=== PATIENT | male | born 1960 | race African-American/Black ===

== ENCOUNTER 2018-01-02 17:25 | Emergency (ER) | payer OTHER ==
[2018-01-02 18:24] LABS: ADD MAN DIFF? YES; BASO % 0 % (0-3); EOS % 0 % (0-3); HEMATOCRIT 37.6 % (39.0-53.0); HEMOGLOBIN 12.4 g/dL (13.0-17.5); LYMPH # 1.1 x10^3/uL (1.0-4.8); LYMPH % 18 % (24-48); MEAN CORPUSCULAR HEMOGLOBIN 30 pg (25-35); MEAN CORPUSCULAR HGB CONC 33 g/dL (31-37); MEAN CORPUSCULAR VOLUME 92 fL (79-100); MONO # 1.3 x10^3/uL (0.0-1.1); MONO % 20 % (0-9); NEUT # 3.8 x10^3uL (1.8-7.7); NEUT % 62 % (31-73); PLATELET COUNT 141 x10^3/uL (140-400); RED BLOOD COUNT 4.12 x10^6/uL (4.30-5.70); RED CELL DISTRIBUTION WIDTH 17.8 % (11.5-14.5); WHITE BLOOD COUNT 6.1 x10^3/uL (4.0-11.0)
[2018-01-02 18:34] LABS: ANION GAP 13 (6-14); BLOOD UREA NITROGEN 8 mg/dL (8-26); BUN/CREATININE RATIO 6 (6-20); CALCIUM 8.8 mg/dL (8.5-10.1); CARBON DIOXIDE 29 mmol/L (21-32); CHLORIDE 100 mmol/L (98-107); CREATININE 1.3 mg/dL (0.7-1.3); GFR 69.1; GLUCOSE 125 mg/dL (70-99); POTASSIUM 3.6 mmol/L (3.5-5.1); SODIUM 142 mmol/L (136-145)
[2018-01-02 18:40] LABS: ALBUMIN 3.6 g/dL (3.4-5.0); ALBUMIN/GLOBULIN RATIO 0.8 (1.0-1.7); ALK PHOS 101 U/L (46-116); ALT (SGPT) 58 U/L (16-63); AST (SGOT) 80 U/L (15-37); TOTAL BILIRUBIN 0.5 mg/dL (0.2-1.0); TOTAL PROTEIN 8.4 g/dL (6.4-8.2)
[2018-01-02] MEDS: MULTIVIT INFUSN,ADULT 4,VIT K 10 ML, THIAMINE 100 MG, FOLIC ACID 1 MG in IV DEXTROSE 5%... IV (18:40)
[2018-01-02 19:58] LABS: % BANDS 1 % (0-9); % EOS 1 % (0-5); % LYMPHS 14 % (24-48); % MONOS 15 % (0-10); % SEGS 69 % (35-66)
[2018-01-02 19:59] LABS: PLT ESTIMATE ADEQUATE (ADEQUATE)
== END 2018-01-02 20:10 | disposition home or self-care (01) ==
LOC: ER 17:25
DX: F10.10 Alcohol abuse, uncomplicated (principal); R53.1 Weakness; R00.2 Palpitations; I11.0 Hypertensive heart disease with heart failure; I50.9 Heart failure, unspecified; M10.9 Gout, unspecified; Z86.711 Personal history of pulmonary embolism; Z86.718 Personal history of other venous thrombosis and embolism
CPT/HCPCS: 36415; 80053; 85007; 85025; 93005; 96365; 99285-25

== ENCOUNTER → 2018-03-31 | Outpatient (CLI) | payer OTHER | END | disposition home or self-care (01) | LOC: RAD 10:00 | DX: M17.0 Bilateral primary osteoarthritis of knee (principal); M76.52 Patellar tendinitis, left knee; M76.51 Patellar tendinitis, right knee; M16.0 Bilateral primary osteoarthritis of hip; I11.0 Hypertensive heart disease with heart failure; I50.32 Chronic diastolic (congestive) heart failure; E87.6 Hypokalemia | CPT/HCPCS: 72202; 73562 ==

== ENCOUNTER → 2018-10-06 | Outpatient (CLI) | payer OTHER ==
[2018-04-13 19:00] VITALS: BP 91/62
[~2018-10-06] MED LIST: ALBU2.5V14 IH; ALLO300T PO; AMLO10TA6 PO; AMLO5TAB7 PO; COUMADIN; FERR325T14 PO; LOSA1TAB22 PO; METO-239 PO; METR500T PO; NAPR375T PO; PANT40TA5 PO; RIVA10TA PO; SULF-143 PO; ZOLP10TA4 PO
[2018-10-06 11:37] LABS: BASO % 1 % (0-3); EOS # 0.2 x10^3/uL (0.0-0.7); EOS % 2 % (0-3); HEMOGLOBIN 12.2 g/dL (13.0-17.5); LYMPH # 1.3 x10^3/uL (1.0-4.8); LYMPH % 19 % (24-48); MEAN CORPUSCULAR HEMOGLOBIN 31 pg (25-35); MEAN CORPUSCULAR HGB CONC 34 g/dL (31-37); MEAN CORPUSCULAR VOLUME 91 fL (79-100); MONO # 0.9 x10^3/uL (0.0-1.1); MONO % 13 % (0-9); NEUT # 4.5 x10^3uL (1.8-7.7); NEUT % 66 % (31-73); PLATELET COUNT 377 x10^3/uL (140-400); RED BLOOD COUNT 3.97 x10^6/uL (4.30-5.70); RED CELL DISTRIBUTION WIDTH 21.3 % (11.5-14.5); WHITE BLOOD COUNT 6.8 x10^3/uL (4.0-11.0)
[2018-10-06 12:06] LABS: ALBUMIN 3.7 g/dL (3.4-5.0); ALBUMIN/GLOBULIN RATIO 0.7 (1.0-1.7); CALCIUM 9.6 mg/dL (8.5-10.1); CREATININE 1.4 mg/dL (0.7-1.3); GFR 63.2; POTASSIUM 3.9 mmol/L (3.5-5.1); TOTAL BILIRUBIN 0.3 mg/dL (0.2-1.0)
[2018-10-06 12:10] LABS: CHOLESTEROL/HDL RATIO 2.9
--- NOTE | 2018-10-06 16:39 | RAD ---
Left shoulder, 3 views, 10/06/2018: HISTORY: Shoulder pain, lifting injury No fracture or dislocation is identified. There is only minimal spurring along the glenoid rim and at the AC joint. IMPRESSION: No acute bony abnormality is detected. Electronically signed by: Dominguez Scott MD (10/06/2018 4:34 PM) [facility]
== END | disposition home or self-care (01) ==
LOC: RAD 11:11
PROVIDERS: ATTEND Internal Medicine Cardiovascular Disease
DX: Z12.5 Encounter for screening for malignant neoplasm of prostate (principal); S49.92XA Unspecified injury of left shoulder and upper arm, initial encounter; M25.512 Pain in left shoulder; G47.00 Insomnia, unspecified; E78.2 Mixed hyperlipidemia; I10 Essential (primary) hypertension; R53.83 Other fatigue; X50.9XXA Other and unspecified overexertion or strenuous movements or postures, initial encounter; Y93.89 Activity, other specified; Y92.89 Other specified places as the place of occurrence of the external cause; Y99.8 Other external cause status
CPT/HCPCS: 36415; 73030; 80053; 80061; 82306; 85025; G0103

== ENCOUNTER 2019-07-02 08:50 | Emergency (ER) | payer SELFPAY ==
[~2019-07-02] VITALS: Ht 182.9 cm; Wt 87.1 kg
[~2019-07-02 08:50] MED LIST changes: -AMLO10TA6 PO; +AMLO10TA8 PO; +AMLO5TAB10 PO; -AMLO5TAB7 PO; -PANT40TA5 PO; +PANT40TA77 PO
[2019-07-02 08:55] VITALS: BP 108/72
[2019-07-02] MEDS ORDERED: METH4TAB2 PO (09:16)
[2019-07-02] MEDS ORDERED: CYCL10TA2 PO (09:16)
[2019-07-02] MEDS ORDERED: HYDR-3164 PO (09:16)
--- NOTE | 2019-07-02 09:17 | PHYS DOC ---
Past Medical History Past Medical History: CHF, DVT, Hypertension, Other Additional Past Medical Histor: PULMONARY EMBOLISM, GOUT, ETOH ABUSE Past Surgical History: Other Additional Past Surgical Histo: COLON, hernia Alcohol Use: Heavy Drug Use: None Adult General Chief Complaint Chief Complaint: LOWER BACK PAIN OR INJURY [facility] HPI Patient is a 59 year old male with history of hypertension, CHF, who presents to the ED today complaining of mild pain to bilateral low back radiating to in his groin region that began 2 weeks ago, patient states he was getting out of the shower, while stepping on a wet floor he did the splits. Denies falling. States he was able to catch himself before he fell. Patient describes the pain as sharp and intermittent worse on certain movements. Denies anything specific alleviating the pain. Denies any loss of bowel bladder function. Denies any numbness or tingling in bilateral lower extremities. States he has been trying to use [id number] pain relievers with slight relief. Review of Systems Review of Systems Constitutional: Denies fever or chills [] Eyes: Denies change in visual acuity, redness, or eye pain [] HENT: Denies nasal congestion or sore throat [] Respiratory: Denies cough or shortness of breath [] Cardiovascular: No additional information not addressed in HPI [] GI: Denies abdominal pain, nausea, vomiting, bloody stools or diarrhea [] : Denies dysuria or hematuria [] Musculoskeletal: Reports bilateral low back pain radiating to bilateral groin region Integument: Denies rash or skin lesions [] Neurologic: Denies headache, focal weakness or sensory changes [] All other systems were reviewed and found to be within normal limits, except as documented in this note. Allergies Allergies Allergies Coded Allergies Type Severity Reaction Last Updated Verified No Known Drug Allergies 04/13/18 No Physical Exam Physical Exam Constitutional: Well developed, well nourished, no acute distress, non-toxic appearance. [] HENT: Normocephalic, atraumatic, bilateral external ears normal, oropharynx moist, no oral exudates, nose normal. [] Eyes: PERRLA, EOMI, conjunctiva normal, no discharge. [] Neck: Normal range of motion, no tenderness, supple, no stridor. [] Cardiovascular:Heart rate regular rhythm, no murmur [] Lungs & Thorax: Bilateral breath sounds clear to auscultation [] Abdomen: Bowel sounds normal, soft, no tenderness, no masses, no pulsatile masses. [] Skin: Warm, dry, no erythema, no rash. [] Back: No tenderness, no CVA tenderness. [] Extremities: No tenderness, no cyanosis, no clubbing, ROM intact, no edema. [] Neurologic: Alert and oriented X 3, normal motor function, normal sensory function, no focal deficits noted. [] Psychologic: Affect normal, judgement normal, mood normal. [] EKG EKG [] Radiology/Procedures Radiology/Procedures [] Course & Med Decision Making Course & Med Decision Making Pertinent Labs and Imaging studies reviewed. (See chart for details) This is a 59-year-old male patient who presents to the ED today with symptoms consistent with lumbosacral strain as well as groin strain. Patient was discharged to home with pain medicine muscle relaxers and steroids. F/u with PCP in 1-2 weeks. Heat recommended to the affected regions. Dragon Disclaimer Dragon Disclaimer This electronic medical record was generated, in whole or in part, using a voice recognition dictation system. Departure Departure Impression: Primary Impression: Acute lumbosacral myofascial strain Additional Impression: Inguinal strain Disposition: 01 HOME, SELF-CARE Condition: STABLE Referrals: CARYL LINO MD (PCP) follow up next week Patient Instructions: Lumbosacral Strain Additional Instructions: You were evaluated in the emergency room for a muscle strain. Take the prescribed medications as ordered. Follow-up with your doctor in 1-2 weeks. Try to apply heat/ice to your lumbar spine. Scripts Cyclobenzaprine Hcl (CYCLOBENZAPRINE HCL) 10 Mg Tablet 1 TAB PO TID, #30 TAB Prov: CRICKET POOLE HEAT TREAT WORKER 07/02/19 Methylprednisolone (MEDROL) 4 Mg Tab.ds.pk 1 PKG PO UD, #1 PKG Prov: CRICKET POOLE HEAT TREAT WORKER 07/02/19 Hydrocodone/Apap 5-325 (NORCO 5-325 TABLET) 1 Each Tablet 1 TAB PO Q6HRS, #14 TAB Prov: MUTCRICKET FENG HEAT TREAT WORKER 07/02/19 Problem Qualifiers Primary Impression: Acute lumbosacral myofascial strain Encounter type: initial encounter Qualified Codes: S39.012A - Strain of muscle, fascia and tendon of lower back, initial encounter Additional Impression: Inguinal strain Encounter type: initial encounter Laterality: right Qualified Codes: S76.211A - Strain of adductor muscle, fascia and tendon of right thigh, initial encounter CRICKET POOLE APRN Jul 02, 2019 09:17
== END 2019-07-02 09:23 | disposition home or self-care (01) ==
LOC: ER 08:50
DX: S39.012A Strain of muscle, fascia and tendon of lower back, initial encounter (principal); S76.211A Strain of adductor muscle, fascia and tendon of right thigh, initial encounter; I11.0 Hypertensive heart disease with heart failure; I50.9 Heart failure, unspecified; Z86.718 Personal history of other venous thrombosis and embolism; Z86.711 Personal history of pulmonary embolism; W18.49XA Other slipping, tripping and stumbling without falling, initial encounter; Y93.89 Activity, other specified; Y92.002 Bathroom of unspecified non-institutional (private) residence as the place of occurrence of the external cause; Y99.8 Other external cause status
CPT/HCPCS: 99283

== ENCOUNTER 2020-07-01 17:34 | Emergency (ER) | payer MEDICARE ==
[~2020-07-01] VITALS: Ht 170.2 cm; Wt 86.0 kg
[~2020-07-01 17:34] MED LIST changes: +CYCL10TA2 PO; +HYDR-3164 PO; +METH4TAB2 PO
[2020-07-01 19:21] LABS: BASO % 1 % (0-3); EOS # 0.1 x10^3/uL (0.0-0.7); EOS % 2 % (0-3); HEMATOCRIT 33.6 % (39.0-53.0); HEMOGLOBIN 10.9 g/dL (13.0-17.5); LYMPH # 1.1 x10^3/uL (1.0-4.8); LYMPH % 32 % (24-48); MEAN CORPUSCULAR HEMOGLOBIN 28 pg (25-35); MEAN CORPUSCULAR HGB CONC 32 g/dL (31-37); MEAN CORPUSCULAR VOLUME 86 fL (79-100); MONO # 0.6 x10^3/uL (0.0-1.1); MONO % 17 % (0-9); NEUT # 1.7 x10^3/uL (1.8-7.7); NEUT % 48 % (31-73); PLATELET COUNT 71 x10^3/uL (140-400); WHITE BLOOD COUNT 3.5 x10^3/uL (4.0-11.0)
[2020-07-01 19:30] LABS: BARBITURATES NEG (NEG); BENZODIAZEPINES NEG (NEG); CANNABINOIDS NEG (NEG); COCAINE NEG (NEG); METHADONE NEG (NEG); OPIATES NEG (NEG); PHENCYCLIDINE NEG (NEG)
[2020-07-01 19:31] LABS: AMPHETAMINE/METHAMPHETAMINE NEG (NEG)
[2020-07-01 19:39] LABS: CALCIUM 8.8 mg/dL (8.5-10.1); CREATININE 1.5 mg/dL (0.7-1.3); POTASSIUM 3.2 mmol/L (3.5-5.1)
[2020-07-01 19:40] LABS: ACETAMIN < 2 mcg/ml (10-30); SALIC < 2.8 mg/dL (2.8-20.0)
[2020-07-01 19:42] LABS: ALBUMIN 3.8 g/dL (3.4-5.0); ALBUMIN/GLOBULIN RATIO 0.8 (1.0-1.7); TOTAL BILIRUBIN 0.4 mg/dL (0.2-1.0); TOTAL PROTEIN 8.6 g/dL (6.4-8.2)
[2020-07-01] MEDS ORDERED: POTASSIUM CHLORIDE 20 MEQ TABLET.ER. PO ONE (19:45)
[2020-07-01] MEDS ORDERED: ONDANSETRON ODT 4 MG TAB.RAPDIS. PO ONE (19:45)
--- NOTE | 2020-07-01 19:55 | PHYS DOC ---
Past Medical History Past Medical History: A-Fib, CHF, DVT, High Cholesterol, Hypertension, Other Additional Past Medical Histor: PE Past Surgical History: No Surgical History Additional Past Surgical Histo: COLON, hernia Smoking Status: Never Smoker Alcohol Use: None Drug Use: None General Adult EDM: Chief Complaint: SUBSTANCE ABUSE HPI: HPI: Patient is a 60 year old male who presents with 40 years of alcoholism. He drinks a pint a day. He has withdrawn off of alcohol before and states he did not have seizures with that. He states he drank a pint of alcohol today. Patient's in the room states that he has not been sober for the last 3 m ont. Patient states he is here to get help. He denies SI, HI, hallucinations, vision changes, headache, dizziness, LOC, fall, hitting his head, numbness or tingling, chest pain, shortness of air, abdominal pain, nausea, vomiting, diarrhea, cough, fever. Patient does have a history of DVT, CHF, A. fib, high cholesterol, hypertension, hernia. He is on Xarelto. He states he has been taking his medications. He denies any other drug use. Review of Systems: Review of Systems: Constitutional: Denies fever or chills. [] Eyes: Denies change in visual acuity. [] HENT: Denies nasal congestion or sore throat. [] Respiratory: Denies cough or shortness of breath. [] Cardiovascular: Denies chest pain or edema. [] GI: Denies abdominal pain, nausea, vomiting, bloody stools or diarrhea. [] : Denies dysuria. [] Musculoskeletal: Denies back pain or joint pain. [] Integument: Denies rash. [] Neurologic: Denies headache, focal weakness or sensory changes. [] Endocrine: Denies polyuria or polydipsia. [] Lymphatic: Denies swollen glands. [] Psychiatric: Denies depression or anxiety. Alcoholism. [] Heart Score: Risk Factors: Risk Factors: DM, Current or recent (<one month) smoker, HTN, HLP, family history of CAD, obesity. Risk Scores: Score 0 - 3: 2.5% MACE over next 6 weeks - Discharge Home Score 4 - 6: 20.3% MACE over next 6 weeks - Admit for Clinical Observation Score 7 - 10: 72.7% MACE over next 6 weeks - Early Invasive Strategies Current Medications: Current Medications Medications (Trade) Dose Ordered Sig/Jo Start Time Stop Time Status Last Admin Dose Admin Multivitamins 10 ml/Thiamine HCl 100 mg/Folic Acid 1 mg/Sodium Chloride 1,011.2 ml @ 1,000.088 mls/hr 1X ONCE 07/01/20 19:45 07/01/20 20:45 UNV Ondansetron HCl (Zofran Odt) 4 mg 1X ONCE 07/01/20 19:45 07/01/20 19:46 UNV Potassium Chloride (Klor-Con) 40 meq 1X ONCE 07/01/20 19:45 07/01/20 19:46 UNV Allergies: Allergies: Allergies Coded Allergies Type Severity Reaction Last Updated Verified No Known Drug Allergies 04/13/18 No Physical Exam: PE: Constitutional: Well developed, well nourished, no acute distress, non-toxic appearance. [] HENT: Normocephalic, atraumatic, bilateral external ears normal, oropharynx moist, no oral exudates, nose normal. [] Eyes: PERRLA, EOMI, conjunctiva normal, no discharge. [] Neck: Normal range of motion, no tenderness, supple, no stridor. [] Cardiovascular:Heart rate regular rhythm, no murmur [] Lungs & Thorax: Bilateral breath sounds clear to auscultation [] Abdomen: Bowel sounds normal, soft, no tenderness, no masses, no pulsatile masses. [] Skin: Warm, dry, no erythema, no rash. [] Back: No tenderness, no CVA tenderness. [] Extremities: No tenderness, no cyanosis, no clubbing, ROM intact, no edema. [] Neurologic: Alert and oriented X 3, normal motor function, normal sensory function, no focal deficits noted. [] Psychologic: Affect normal, judgement normal, mood normal. Alcohol intoxication. [] Current Patient Data: Labs: Laboratory Tests Test 07/01/20 18:56 07/01/20 19:07 Urine Opiates Screen Neg (NEG) Urine Methadone Screen Neg (NEG) Urine Barbiturates Neg (NEG) Urine Phencyclidine Screen Neg (NEG) Urine Amphetamine/Methamphetamine Neg (NEG) Urine Benzodiazepines Screen Neg (NEG) Urine Cocaine Screen Neg (NEG) Urine Cannabinoids Screen Neg (NEG) Urine Ethyl Alcohol Pos (NEG) White Blood Count 3.5 x10^3/uL (4.0-11.0) L Red Blood Count 3.90 x10^6/uL (4.30-5.70) L Hemoglobin 10.9 g/dL (13.0-17.5) L Hematocrit 33.6 % (39.0-53.0) L Mean Corpuscular Volume 86 fL (79-100) Mean Corpuscular Hemoglobin 28 pg (25-35) Mean Corpuscular Hemoglobin Concent 32 g/dL (31-37) Red Cell Distribution Width 19.0 % (11.5-14.5) H Platelet Count 71 x10^3/uL (140-400) L Neutrophils (%) (Auto) 48 % (31-73) Lymphocytes (%) (Auto) 32 % (24-48) Monocytes (%) (Auto) 17 % (0-9) H Eosinophils (%) (Auto) 2 % (0-3) Basophils (%) (Auto) 1 % (0-3) Neutrophils # (Auto) 1.7 x10^3/uL (1.8-7.7) L Lymphocytes # (Auto) 1.1 x10^3/uL (1.0-4.8) Monocytes # (Auto) 0.6 x10^3/uL (0.0-1.1) Eosinophils # (Auto) 0.1 x10^3/uL (0.0-0.7) Basophils # (Auto) 0.0 x10^3/uL (0.0-0.2) Sodium Level 141 mmol/L (136-145) Potassium Level 3.2 mmol/L (3.5-5.1) L Chloride Level 100 mmol/L (98-107) Carbon Dioxide Level 30 mmol/L (21-32) Anion Gap 11 (6-14) Blood Urea Nitrogen 11 mg/dL (8-26) Creatinine 1.5 mg/dL (0.7-1.3) H Estimated GFR (Cockcroft-Gault) 58.0 BUN/Creatinine Ratio 7 (6-20) Glucose Level 84 mg/dL (70-99) Calcium Level 8.8 mg/dL (8.5-10.1) Total Bilirubin 0.4 mg/dL (0.2-1.0) Aspartate Amino Transferase (AST) 159 U/L (15-37) H Alanine Aminotransferase (ALT) 73 U/L (16-63) H Alkaline Phosphatase 110 U/L (46-116) Total Protein 8.6 g/dL (6.4-8.2) H Albumin 3.8 g/dL (3.4-5.0) Albumin/Globulin Ratio 0.8 (1.0-1.7) L Salicylates Level < 2.8 mg/dL (2.8-20.0) L Salicylate Last Dose Date Unk Salicylate Last Dose Time Unk Acetaminophen Level < 2 mcg/ml (10-30) L Acetaminophen Last Dose Date Unk Acetaminophen Last Dose Time Unk Laboratory Tests 07/01/20 19:07 Laboratory Tests 07/01/20 19:07 Vital Signs: Vital Signs Date Time Temp Pulse Resp B/P (MAP) Pulse Ox O2 Delivery O2 Flow Rate FiO2 07/01/20 18:47 99.2 86 18 120/85 (97) 99 Room Air 99.2 EKG: EK and read by Dr Apariico as sinus rhythm and no STEMI. [] Radiology/Procedures: Radiology/Procedures: [] Course & Med Decision Making: Course & Med Decision Making Pertinent Labs and Imaging studies reviewed. (See chart for details) See HPI. Vital signs are within normal limits. Alert and oriented x4. Ambula tory with a steady gait. No extremity edema. Lungs are clear in upper lobes and diminished in lower lobes. Polina from PAC team has come to see the patient. Patient is medically cleared and has been accepted by [facility]. [] Harris Disclaimer: Harris Disclaimer: This electronic medical record was generated, in whole or in part, using a voice recognition dictation system. Departure Departure Impression: Primary Impression: Alcohol abuse Disposition: 65 XFER TO PSYCH HOSP/UNIT (I) Condition: STABLE Referrals: CARYL LINO MD (PCP) Patient Instructions: Alcohol Intoxication Additional Instructions: Stay with [facility] as long as they would like you to. Drink plenty of water. Scripts Chlordiazepoxide Hcl (CHLORDIAZEPOXIDE HCL) 25 Mg Capsule 25 MG PO PRN PRN for ANXIETY / AGITATION for 4 Days, #15 CAP 50mg every 6 hours x 1 day. 25mg every 6 hours x 1 day. 25mg BID x 1 day. 25mg QHS x 1 day. Prov: COMPA WILKINSON APRN 07/01/20 Justicifation of Admission Dx: Justifications for Admission: Justification of Admission Dx: N/A COMPA WILKINSON APRN Jul 01, 2020 19:55
[2020-07-01 20:00] LABS: MAGNESIUM 1.5 mg/dL (1.8-2.4)
[2020-07-01] MEDS ORDERED: MULTIVIT INFUSN,ADULT 4,VIT K 10 ML, THIAMINE INJ 100 MG, FOLIC ACID INJ 1 MG in IV NOR... IV ONE (20:00)
[2020-07-01] MEDS ORDERED: MAGNESIUM SULFATE 2GM 50 ML IV ONE (20:30)
[2020-07-01] MEDS ORDERED: CHLO25CA9 PO (22:01)
[2020-07-01 23:00] VITALS: BP 123/86
--- NOTE | 2020-07-02 08:06 | EKG ---
[facility] [address] [place] [address] Test Date: 2020-07-01 Test Time: 20:47:21 Pat Name: TOLU WATT Department: Room: Gender: M Manager Cable: : 1960 Requested By: COMPA WILKINSON Order Number: [id number] Reading MD: Measurements Intervals [place] Rate: 73 P: 35 OR: 192 QRS: -28 QRSD: 92 T: 10 QT: 398 QTc: 442 Interpretive Statements SINUS RHYTHM LEFTWARD AXIS NO SPECIFIC ECG ABNORMALITIES RI6.01 No previous ECG available for comparison
== END 2020-07-01 23:23 | disposition short-term general hospital (02) ==
LOC: ER 17:34
DX: F10.229 Alcohol dependence with intoxication, unspecified (principal); I48.91 Unspecified atrial fibrillation; I50.9 Heart failure, unspecified; I11.0 Hypertensive heart disease with heart failure; E78.00 Pure hypercholesterolemia, unspecified; Z86.718 Personal history of other venous thrombosis and embolism; Z98.890 Other specified postprocedural states
CPT/HCPCS: 36415; 80053; 80307; 80329; 83690; 83735; 83880; 84484; 85025; 93005; 96365; 96366; 96367; 99285; G0480; J3411; J3475; J3490; J7030

== ENCOUNTER 2020-12-01 17:57 | Emergency (ER) | payer MEDICARE ==
[~2020-12-01] VITALS: Ht 180.3 cm; Wt 86.3 kg
[~2020-12-01 17:57] MED LIST changes: +AMLO-186 PO; +AMLO-187 PO; -AMLO10TA8 PO; -AMLO5TAB10 PO; +CHLO25CA9 PO
--- NOTE | 2020-12-01 18:26 | PHYS DOC ---
Past Medical History Past Medical History: A-Fib, CHF, DVT, High Cholesterol, Hypertension, Other Additional Past Medical Histor: PE Past Surgical History: No Surgical History Additional Past Surgical Histo: COLON, hernia Smoking Status: Never Smoker Alcohol Use: None Drug Use: None General Adult EDM: Chief Complaint: CHEST WALL PAIN HPI: HPI: Patient is a 60 year old male with a past medical history of hypertension blood clots DVT PE presents with a chief complaint of chest pain. Patient states he has had chest pain daily for the last several months. Patient's chest pain is associated with some nausea and dizziness. Around 1-2 o'clock this afternoon patient states he was moving some furniture and chest pain intensified. Review of Systems: Review of Systems: Review of systems: Constitutional symptoms- No fever, no chills. ENT--- positive runny nose stuffy nose Eyes- No Discharge, No Visual Loss Respiratory symptoms-positive shortness of breath, No wheezing, No Dyspnea on Exertion Cardiovascular Systems; positive chest pain, No Palpitations, No syncope Gastrointestinal symptoms: NO abdominal pain, no nausea, no vomiting or diarrhea. Positive blood in stool Genitourinary symptoms: No dysuria. Musculoskeletal symptoms: No back pain No extremity pain. NEUROLOGICAL Symptoms: No headache, no generalized weakness; No focal Weakness positive dizziness Heart Score: HEART Score for Chest Pain: HEART Score for Chest Pain Response (Comments) Value History Slighlty/Non-Suspicious 0 ECG Normal 0 Risk Factors 1 or 2 Risk Factors 1 Total 1 Risk Factors: Risk Factors: DM, Current or recent (<one month) smoker, HTN, HLP, family history of CAD, obesity. Risk Scores: Score 0 - 3: 2.5% MACE over next 6 weeks - Discharge Home Score 4 - 6: 20.3% MACE over next 6 weeks - Admit for Clinical Observation Score 7 - 10: 72.7% MACE over next 6 weeks - Early Invasive Strategies Current Medications: Current Medications Medications (Trade) Dose Ordered Sig/[facility] Start Time Stop Time Status Last Admin Dose Admin Aspirin (Aspirin Chewable) 324 mg 1X ONCE 12/01/20 18:30 12/01/20 18:31 Sodium Chloride 1,000 ml @ 1,000 mls/hr 1X ONCE 12/01/20 18:30 12/01/20 19:29 Allergies: Allergies: Allergies Coded Allergies Type Severity Reaction Last Updated Verified No Known Drug Allergies 04/13/18 No Physical Exam: PE: General: alert, no acute distress. Skin: warm, dry and intact. Head:: Normocephalic, atraumatic. Neck: Trachea midline. Eyes: EOMI, Normal conjunctiva, No drainage CARDIOVASCULAR: Regular rate and rhythm RESPIRATORY: No respiratory distress Back: Full range of motion. MUSCULOSKELETAL: Full range of motion of bilateral upper and lower extremities. GASTROINTESTINAL: Abdomen soft without rebound or guarding. NEUROLOGICAL: Alert and noted to person, place and time. No neurological deficits observed Psychiatric: Cooperative. Normal judgment EKG: EKG: EKG performed at 1815 sinus rhythm left axis no ST elevation no ST depression no acute LA [] Radiology/Procedures: Radiology/Procedures: [] Impression: Single view of chest obtained. Tortuous prominent aortic contour. Mild elevation of the right hemidiaphragm. No definite focal airspace consolidation. IMPRESSION: * Tortuous prominent aortic contour which is likely exaggerated by portable technique. * No focal airspace consolidation. Course & Med Decision Making: Course & Med Decision Making Pertinent Labs and Imaging studies reviewed. (See chart for details) [] Patient was evaluated for chief complaint. Work-up consisted of laboratory analysis and radiologic imaging and EKG. Results reviewed and discussed with patient. Covid test drawn and pending. Patient will be discharged home with instructions to follow-up with his primary care physician. Harris Disclaimer: Harris Disclaimer: This electronic medical record was generated, in whole or in part, using a voice recognition dictation system. Departure Departure Impression: Primary Impression: Chest pain Additional Impressions: Dizzy Person under investigation for COVID-19 Fever Disposition: 01 DC HOME SELF CARE/HOMELESS Condition: STABLE Referrals: CARYL LINO MD (PCP) Patient Instructions: Chest Pain (Nonspecific), Fever Additional Instructions: You have been tested for or diagnosed with COVID-19. It is an infection caused by a new type of coronavirus. COVID-19 will cause cold-like or mild flu symptoms in most. It can cause more severe symptoms like problems breathing in some. There is no treatment for COVID-19. The body will clear the infection over time. Self-care will help to ease discomfort. Steps to Take: Self-Care Rest as needed. Healthy habits may help you feel better. Steps include: Choose healthy foods including fruits and vegetables. Drink water throughout the day. Get plenty of sleep each night. If you smoke, try to quit. It may ease breathing. Avoid alcohol. Keep Others Healthy The virus can spread to others. Droplets are released every time you sneeze or cough. The droplets can get into the mouth, nose, or eyes of people near you and lead to infection. To lower the chances of spreading COVID-19 to others: Stay at home until your doctor has said it is safe to leave. If you tested positive this will mean staying isolated until both of the following are true: At least 7 days have passed since the start of illness. You are free of fever for at least 72 hours without the use of medicine. During this time: - Avoid public areas, events, or transportation. Do not return to work or school until your doctor has said it is safe to do so. - Call ahead if you need to go to a medical center. Let them know you may have COVID-19. It will help them guide you where to go. They may also ask you to wear a facemask when you come to the office. - If you call for emergency medical services, let them know you may have COVID- 19. While at home: - Try to avoid close contact with others. Stay about 6 feet away. - If possible, spend most of your time in a separate room from others. - Use a face mask if you will be in close contact with others such as sharing a room or vehicle. - Have someone wipe down common surfaces in the home. Use household candy forming machine operator every day on areas like doorknobs, counters, or sinks. - Cough or sneeze into a tissue. Throw the tissue away right after use. If a tissue is not available, cough or sneeze into your elbow. - Wash your hands often. Wash them after sneezing or coughing. Use soap and water and wash for at least 20 seconds. Alcohol based hand lingo cleaner can be used if soap and water is not available. - Do not prepare food for others. Avoid sharing personal items like forks, spoons, or toothbrushes. - Avoid close contact with pets while you are sick. There is no evidence of the virus passing to pets. This is a safety step until more is known about this virus. Isolation can be frustrating. Social interaction can help. Keep in touch with friends and family through phone and tech options. You can still interact with others in your home, just keep a safe distance of about 6 feet. Follow-up: Your doctors office will check in with you to see if there are any changes in your health. You may be asked to keep track of symptoms to share with them. They will also let you know when you are clear to be in public again. Problems to Look Out For: Contact your doctor if your recovery is not going as you expect. Get emergency care if you have problems such as: - Trouble breathing - Nonstop chest pain or pressure - Changes in awareness, confusion, or problems waking - Lips or face have bluish color - Worsening of symptoms If you think you have an emergency, call for emergency medical services right away. As taken from [facility] DAILY Vergara DO Dec 01, 2020 18:26
[2020-12-01] MEDS ORDERED: ASPIRIN CHEWABLE 81 MG TABLET. PO ONE (18:30)
[2020-12-01] MEDS ORDERED: IV NORMAL SALINE 1000ML BAG 1,000 ML IV ONE (18:30)
--- NOTE | 2020-12-01 18:33 | EKG ---
[facility] [address] [place] [address] Test Date: 2020-12-01 Test Time: 18:15:20 Pat Name: TOLU WATT Department: Room: Gender: M Business Attorney: : 1960 Requested By: DAILY CAMEJO Order Number: [id number] Reading MD: Measurements Intervals [place] Rate: 83 P: 0 MS: 178 QRS: -26 QRSD: 92 T: 0 QT: 370 QTc: 440 Interpretive Statements SINUS RHYTHM LEFTWARD AXIS NO SPECIFIC ECG ABNORMALITIES RI6.02 No previous ECG available for comparison
[2020-12-01 18:52] LABS: BASO % 1 % (0-3); EOS % 1 % (0-3); HEMATOCRIT 27.7 % (39.0-53.0); HEMOGLOBIN 8.8 g/dL (13.0-17.5); LYMPH % 25 % (24-48); MEAN CORPUSCULAR HEMOGLOBIN 26 pg (25-35); MEAN CORPUSCULAR HGB CONC 32 g/dL (31-37); MEAN CORPUSCULAR VOLUME 83 fL (79-100); MONO # 0.8 x10^3/uL (0.0-1.1); MONO % 20 % (0-9); NEUT # 2.2 x10^3/uL (1.8-7.7); NEUT % 54 % (31-73); PLATELET COUNT 153 x10^3/uL (140-400); RED BLOOD COUNT 3.35 x10^6/uL (4.30-5.70); RED CELL DISTRIBUTION WIDTH 17.9 % (11.5-14.5)
[2020-12-01] MEDS ORDERED: ACETAMINOPHEN 325 MG TABLET. PO ONE (19:00)
[2020-12-01 19:12] LABS: CALCIUM 7.9 mg/dL (8.5-10.1); GFR 41.6; POTASSIUM 3.4 mmol/L (3.5-5.1)
[2020-12-01 19:18] LABS: ALBUMIN 3.3 g/dL (3.4-5.0); ALBUMIN/GLOBULIN RATIO 0.8 (1.0-1.7); TOTAL BILIRUBIN 0.3 mg/dL (0.2-1.0); TOTAL PROTEIN 7.5 g/dL (6.4-8.2)
--- NOTE | 2020-12-01 19:19 | RAD ---
INDICATION: Reason: chest pain / Spl. Instructions: / History: COMPARISON: March 2018 FINDINGS: Single view of chest obtained. Tortuous prominent aortic contour. Mild elevation of the right hemidiaphragm. No definite focal airsp madisyn consolidation. IMPRESSION: * Tortuous prominent aortic contour which is likely exaggerated by portable technique. * No focal airspace consolidation. Electronically signed by: Joe Darby MD (12/01/2020 7:16 PM) [id number]
[2020-12-01 19:37] LABS: % EOS 1 % (0-5); % LYMPHS 24 % (24-48); % MONOS 12 % (0-10); % SEGS 63 % (35-66); ANISOCYTOSIS SLIGHT; HYPOCHROMIA SLIGHT; OVALOCYTES OCC; PLT ESTIMATE ADEQUATE (ADEQUATE); POIKILOCYTOSIS SLIGHT
[2020-12-01 19:38] LABS: SCHISTOCYTES OCC; TARGET CELLS OCC
[2020-12-01 22:25] VITALS: BP 117/80
--- NOTE | 2020-12-03 08:53 | NUR ---
IP: Attempted to contact pt concerning COVID results. No answer, voicemail box full.
== END 2020-12-01 22:05 | disposition home or self-care (01) ==
LOC: ER 17:57
DX: R07.89 Other chest pain (principal); Z20.822 Contact with and (suspected) exposure to COVID-19; R42 Dizziness and giddiness; R50.9 Fever, unspecified; R11.0 Nausea; I48.20 Chronic atrial fibrillation, unspecified; I11.0 Hypertensive heart disease with heart failure; I50.9 Heart failure, unspecified; E78.00 Pure hypercholesterolemia, unspecified; Z86.718 Personal history of other venous thrombosis and embolism; Z98.890 Other specified postprocedural states
CPT/HCPCS: 36415; 71045; 80053; 83880; 84484; 85007; 85025; 93005; 96360; 99285; C9803; J7030; U0003

== ENCOUNTER 2021-06-03 13:53 | Emergency (ER) | payer MEDICARE ==
[~2021-06-03] VITALS: Ht 180.3 cm; Wt 82.0 kg
[2021-06-03] MEDS ORDERED: IV NORMAL SALINE 1000ML BAG 1,000 ML IV ONE ×2 (15:00)
[2021-06-03] MEDS ORDERED: DIPH,PERTUSS(ACELL),TET VAC/PF 0.5 ML SYRINGE. VAX IM ONE (15:00)
[2021-06-03] MEDS ORDERED: LIDOCAINE 1% Multi-Dose 20 ML VIAL. INJ ONE ×2 (15:00→18:00)
[2021-06-03 15:08] LABS: BASO % 0 % (0-3); EOS % 0 % (0-3); HEMATOCRIT 21.5 % (39.0-53.0); HEMOGLOBIN 7.1 g/dL (13.0-17.5); LYMPH # 0.9 x10^3/uL (1.0-4.8); LYMPH % 5 % (24-48); MEAN CORPUSCULAR HEMOGLOBIN 30 pg (25-35); MEAN CORPUSCULAR HGB CONC 33 g/dL (31-37); MEAN CORPUSCULAR VOLUME 91 fL (79-100); MONO # 1.3 x10^3/uL (0.0-1.1); MONO % 7 % (0-9); NEUT # 15.7 x10^3/uL (1.8-7.7); NEUT % 87 % (31-73); PLATELET COUNT 281 x10^3/uL (140-400); RED BLOOD COUNT 2.37 x10^6/uL (4.30-5.70); RED CELL DISTRIBUTION WIDTH 16.4 % (11.5-14.5); WHITE BLOOD COUNT 17.9 x10^3/uL (4.0-11.0)
[2021-06-03 15:13] LABS: CALCIUM 8.2 mg/dL (8.5-10.1); CREATININE 1.8 mg/dL (0.7-1.3); GFR 46.8; POTASSIUM 4.1 mmol/L (3.5-5.1)
[2021-06-03 15:18] LABS: ALBUMIN 2.7 g/dL (3.4-5.0); ALBUMIN/GLOBULIN RATIO 0.7 (1.0-1.7); MAGNESIUM 1.6 mg/dL (1.8-2.4); TOTAL BILIRUBIN 0.2 mg/dL (0.2-1.0); TOTAL PROTEIN 6.6 g/dL (6.4-8.2)
[2021-06-03 15:23] LABS: % BANDS 1 % (0-9); % LYMPHS 11 % (24-48); % MONOS 4 % (0-10); % SEGS 84 % (35-66)
[2021-06-03 15:25] LABS: PLT ESTIMATE ADEQUATE (ADEQUATE)
[2021-06-03 15:27] LABS: POLYCHROMASIA SLIGHT
[2021-06-03] MEDS ORDERED: MAGNESIUM SULFATE 2GM 50 ML IV ONE (15:30)
--- NOTE | 2021-06-03 15:33 | PHYS DOC ---
Past Medical History Past Medical History: A-Fib, CHF, DVT, High Cholesterol, Hypertension, Other Additional Past Medical Histor: blood clots Past Surgical History: Other Additional Past Surgical Histo: COLON, hernia Smoking Status: Current Some Day Smoker Alcohol Use: None Drug Use: None General Adult EDM: Chief Complaint: SYNCOPE HPI: HPI: Patient is a 61 year old male who presents with states he went to get end up today and got dizzy and passed out. He has a zigzag shaped laceration that is approximately 2-1/2 inches long to his left forehead. He also complains of neck pain. He is on Xarelto. He states he does have a headache and slight dizziness that he is rating at a 7 out of 10. Denies feeling sick, chest pain, short of breath, numbness or tingling, focal weakness, abdominal pain, nausea, vomiting, diarrhea, cough,. Patient has a history of high cholesterol, A. fib, hypertension, PE, DVT, smoking, CHF. Review of Systems: Review of Systems: Constitutional: Denies fever or chills. [] Eyes: Denies change in visual acuity. [] HENT: Denies nasal congestion or sore throat. [] Respiratory: Denies cough or shortness of breath. [] Cardiovascular: Denies chest pain or edema. [] GI: Denies abdominal pain, nausea, vomiting, bloody stools or diarrhea. [] : Denies dysuria. [] Musculoskeletal: + Upper back pain or denies joint pain. [] Integument: Denies rash. + Forehead laceration [] Neurologic: Denies headache, focal weakness or sensory changes. + Syncope. + Dizziness [] Endocrine: Denies polyuria or polydipsia. [] Lymphatic: Denies swollen glands. [] Psychiatric: Denies depression or anxiety. [] Heart Score: C/O Chest Pain: No Risk Factors: Risk Factors: DM, Current or recent (<one month) smoker, HTN, HLP, family history of CAD, obesity. Risk Scores: Score 0 - 3: 2.5% MACE over next 6 weeks - Discharge Home Score 4 - 6: 20.3% MACE over next 6 weeks - Admit for Clinical Observation Score 7 - 10: 72.7% MACE over next 6 weeks - Early Invasive Strategies Current Medications: Current Medications Medications (Trade) Dose Ordered Sig/Jo Start Time Stop Time Status Last Admin Dose Admin Diphtheria/ Tetanus/Acell Pertussis (ADACEL TDap SYRINGE) 0.5 ml ONCE ONCE 06/03/21 15:00 06/03/21 15:01 DC Lidocaine HCl (Lidocaine 1% 20ml Vial) 20 ml 1X ONCE 06/03/21 15:00 06/03/21 15:01 DC Sodium Chloride 1,000 ml @ 1,000 mls/hr 1X ONCE 06/03/21 15:00 06/03/21 15:59 Allergies: Allergies: Allergies Coded Allergies Type Severity Reaction Last Updated Verified No Known Drug Allergies 06/03/21 No Physical Exam: PE: Constitutional: Well developed, well nourished, no acute distress, non-toxic appearance. [] HENT: Normocephalic, atraumatic, bilateral external ears normal, oropharynx moist, no oral exudates, nose normal. [] Eyes: PERRLA, EOMI, conjunctiva normal, no discharge. [] Neck: Normal range of motion, cervical tenderness, supple, no stridor. [] Cardiovascular:Heart rate regular rhythm, no murmur [] Lungs & Thorax: Bilateral breath sounds clear to auscultation [] Abdomen: Bowel sounds normal, soft, no tenderness, no masses, no pulsatile masses. [] Skin: Warm, dry, no erythema, no rash. [] Back: No tenderness, no CVA tenderness. [] Extremities: No tenderness, no cyanosis, no clubbing, ROM intact, no edema. [] Neurologic: Alert and oriented X 3, normal motor function, normal sensory function, no focal deficits noted. [] Psychologic: Affect normal, judgement normal, mood normal. [] Current Patient Data: Labs: Laboratory Tests Test 06/03/21 14:12 White Blood Count 17.9 x10^3/uL (4.0-11.0) H Red Blood Count 2.37 x10^6/uL (4.30-5.70) L Hemoglobin 7.1 g/dL (13.0-17.5) L Hematocrit 21.5 % (39.0-53.0) L Mean Corpuscular Volume 91 fL (79-100) Mean Corpuscular Hemoglobin 30 pg (25-35) Mean Corpuscular Hemoglobin Concent 33 g/dL (31-37) Red Cell Distribution Width 16.4 % (11.5-14.5) H Platelet Count 281 x10^3/uL (140-400) Neutrophils (%) (Auto) 87 % (31-73) H Lymphocytes (%) (Auto) 5 % (24-48) L Monocytes (%) (Auto) 7 % (0-9) Eosinophils (%) (Auto) 0 % (0-3) Basophils (%) (Auto) 0 % (0-3) Neutrophils # (Auto) 15.7 x10^3/uL (1.8-7.7) H Lymphocytes # (Auto) 0.9 x10^3/uL (1.0-4.8) L Monocytes # (Auto) 1.3 x10^3/uL (0.0-1.1) H Eosinophils # (Auto) 0.0 x10^3/uL (0.0-0.7) Basophils # (Auto) 0.0 x10^3/uL (0.0-0.2) Platelet Estimate Pending Laboratory Tests 06/03/21 14:12 Vital Signs: Vital Signs Date Time Temp Pulse Resp B/P (MAP) Pulse Ox O2 Delivery O2 Flow Rate FiO2 06/03/21 14:04 98.5 102 15 100/63 97 98.5 EKG: EK and read by Dr. Russell is sinus rhythm and no STEMI Radiology/Procedures: Radiology/Procedures: [] Impression: [facility] [address] [place], [place] [id number] IMAGING REPORT Signed PATIENT: TOLU WATT ACCOUNT: [id number] : 1960 LOCATION: ER AGE: 61 SEX: M EXAM STATUS: REG ER ORD. PHYSICIAN: COMPA WILKINSON APRN REASON: syncope PROCEDURE: CT HEAD AND CERVICAL SPINE WO CT HEAD AND C-SPINE WO, CT MAXILLOFACIAL WITHOUT CONTRAST History: Reason: syncope / Spl. Instructions: / History: . Pain Comparison: August 15, 2000 and Technique: Noncontrast CT imaging was performed of the head, maxillofacial and cervical spine. Coronal and sagittal reconstructions were performed. Exposure: One or more of the following individualized dose reduction techniques were utilized for this examination: 1. Automated exposure control 2. Adjustment of the mA and/or kV according to patient size 3. Use of iterative reconstruction technique. Findings: Head CT: No intracranial hemorrhage. No mass effect. No hydrocephalus. Mild brain parenchymal volume loss. Moderate foci of decreased attenuation within the hemispheric white matter, most often due to chronic microscopic ischemia, overall progressed compared to 2010. Right frontal scalp laceration Maxillofacial CT: Acute comminuted bilateral nasal bone fracture with mild displacement. There is adjacent soft tissue swelling. Orbits are unremarkable. Paranasal sinuses and mastoid air cells are clear. No acute calvarial fracture. TMJ arthropathy greatest on the left. Left maxillary carious dentition with periodontal disease. Cervical spine CT: Acute C5 spinous process fracture involving the right lamina. Acute right C5 transverse process fracture (series 17 image 34) involving the transverse foramen. Fragments adjacent to the anterior inferior C5 vertebral body, may relate to degenerative changes or small fracture fragments from the anterior inferior corner. Grade 1 anterolisthesis C4 on C5. Mild retrolisthesis C5 on C6. Slight grade 1 anterolisthesis C7 on T1. Multilevel degenerative disc changes most prominent C4-C5, C5-C6 or C6-C7. Multilevel bony facet fusion C3-C4 and C4-C5. No high-grade canal narrowing. Mu ltilevel neuroforaminal narrowing. Soft tissues are unremarkable. Impression: Head CT: 1. No acute intracranial abnormality. 2. Right frontal scalp laceration. Maxillofacial CT: 1. Acute comminuted bilateral nasal bone fracture with adjacent soft tissue swelling. Cervical spine CT: 1. Acute C5 spinous process and right lamina fracture as well as right transverse process fracture involving the transverse foramen CT angiogram can further evaluate for vertebral artery injury as clinically warranted. 2. Ossifications adjacent to the C5 anterior inferior corner, may relate to small fracture fragments or degenerative changes. Electronically signed by: Jonathon Mckinley DO (06/03/2021 4:30 PM) [facility] DICTATED and SIGNED BY: JONATHON MCKINLEY DO DATE: 06/03/21 [id number] [facility] [address] [place] [address] IMAGING REPORT Signed PATIENT: TOLU WATT ACCOUNT: [id number] : 1960 LOCATION: ER AGE: 61 SEX: M EXAM STATUS: REG ER ORD. PHYSICIAN: COMPA WILKINSON APRN REASON: syncope PROCEDURE: PORTABLE CHEST 1V XR CHEST 1V Clinical History: Reason: syncope / Spl. Instructions: / History: Technique: AP view of the chest was obtained at 06/03/2021 4:40 PM. Comparison: December 01, 2020. Findings: The cardiomediastinal silhouette is normal. The pulmonary vasculature is normal. The lungs and pleural margins are clear. Impression: No evidence of an acute cardiopulmonary process. Electronically signed by: Madan Senior III, MD (06/03/2021 4:51 PM) [id number] DICTATED and SIGNED BY: MADAN SENIOR III, MD DATE: 06/03/21 [id number] [facility] [address] [place], [place] [id number] IMAGING REPORT Signed PATIENT: TOLU WATT ACCOUNT: [id number] : 1960 LOCATION: ER AGE: 61 SEX: M EXAM STATUS: REG ER ORD. PHYSICIAN: COMPA WILKINSON APRN REASON: CERVICAL FRACTURE FROM FALL PROCEDURE: CT ANGIOGRAPHY NECK CTA NECK History:Reason: CERVICAL FRACTURE FROM FALL / Spl. Instructions: [id number] [phone] / History: Technique: After bolus of intravenous contrast, volumetric CT data acquisition was acquired of the neck. Multiplanar reconstruction images to include MIP and 3-D reconstruction images are submitted. Exposure: One or more of the following individualized dose reduction techniques were utilized for this examination: 1. Automated exposure control 2. Adjustment of the mA and/or kV according to patient size 3. Use of iterative reconstruction technique. Comparison: None Any determination of stenosis is based on NASCET criteria. Findings: Aortic arch: Conventional arch anatomy. Common carotid arteries: No stenosis, occlusion or dissection. Internal carotid arteries: No stenosis, occlusion or dissection. External carotid arteries: Patent Vertebral arteries: Focal irregularity and moderate narrowing of the right vertebral artery at the C5 transverse process fracture with focal dissection. No arterial occlusion. Mild narrowing of the left vertebral artery at the left C5 transverse process. Left internal carotid artery supraclinoid the inferior projecting 2 mm aneurysm or infundibulum (series 3 image 263 and series 6 image 112). Imaged lung apices are unremarkable. Soft tissues appear normal. Bones: Acute right C5 spinous process fracture involving the right lamina. Acute right transverse process fracture. Acute C5 anterior inferior corner fracture. Multilevel cervical spondylosis. TMJ arthropathy. Carious dentition with periodontal disease. Impression: 1. Focal right vertebral artery intimal injury with focal dissection at the level of the right C5 transverse process fracture. 2. C5 anterior inferior corner fracture as well as spinous process and right lamina fracture. 3. 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 Electronically signed by: Jonathon Mckinley DO (06/03/2021 6:58 PM) [facility] DICTATED and SIGNED BY: JONATHON MCKINLEY DO DATE: 06/03/21 [id number] [facility] [address] [place] [address] IMAGING REPORT Signed PATIENT: TOLU WATT ACCOUNT: [id number] : 1960 LOCATION: ER AGE: 61 SEX: M EXAM STATUS: REG ER ORD. PHYSICIAN: COMPA WILKINSON APRN REASON: CERVICAL FRACTURE FROM FALL PROCEDURE: CT THORACIC SPINE W/CONTRAST CT THORACIC SPINE WITH IV CONTRAST History:Reason: CERVICAL FRACTURE FROM FALL / Spl. Instructions: / History: Technique: CT was performed of the thoracic spine with contrast. Multiplanar reconstructions were performed. Exposure: One or more of the following individualized dose reduction techniques were utilized for this examination: 1. Automated exposure control 2. Adjustment of the mA and/or kV according to patient size 3. Use of iterative reconstruction technique. Comparison: NoneNonendings: Thoracic spine: Normal vertebral body height and alignment. No fracture. Mild degenerative disc changes. No high-grade canal narrowing. T1-T2 facet arthropathy with moderate neuroforaminal narrowing. Mild T2-T3 neuroforaminal narrowing. Cholelithiasis. Impression: 1. No acute fracture or subluxation of the thoracic spine. 2. Cholelithiasis. Electronically signed by: Jonathon Mckinley DO (06/03/2021 7:06 PM) [facility] DICTATED and SIGNED BY: JONATHON MCKINLEY DO DATE: 06/03/21 [id number] Course & Med Decision Making: Course & Med Decision Making Pertinent Labs and Imaging studies reviewed. (See chart for details) COVID-19 CRITERIA: The patient was evaluated during the global COVID-19 pandemic, and that diagnosis was suspected/considered upon their initial presentation. Their evaluation, treatment and testing was consistent with current guidelines for patients who present with complaints or symptoms that may be related to COVID-19. See HPI. Alert and oriented x4. He states dizziness worsens when he stands up. Abdomen soft and nontender. Neck focal bony tenderness with palpation. Patient is in c-collar. PERRLA. No nystagmus. No vision loss. Intact sensations. Cap refill less than 2 seconds. Vital signs are within normal limits, he is slightly tachycardic. No extremity edema, no joint laxity, weakness or deformity. Laceration repair Location: Right forehead, zigzag, 2 inches, Left upper lip 0.5cm through v ermillion border Local anesthesia: 1% lidocaine Interrupted sutures/Internal sutures: 8 Sutures using 5-0 in forehead, lip 3 suture using 5-0 Nerve/ligament/muscle damage: None Cleaning and irrigation: Chlorhexidine and saline The appropriate timeout was taken. The area was prepped and draped in the usual sterile fashion. The wound was copiously irrigated with normal saline and chlorhexidine. Patient tolerated well without complication. Dressing was applied to the area follow-up education is given to observe for signs and symptoms of infection, bleeding and to follow-up promptly if these occur. Patient can return in 48 hours for a wound recheck. Sutures to be removed in 7 to 10 days. Patient is kept in a c-collar. I talked to Nichole nurse practitioner of Dr. Leyva and he states to keep the patient in a c-collar. I did the patient Zosyn for his nasal bone fractures. Dr. Leyva states to go ahead and do CT angio of the cervical spine and Dr. Russell tell me to go ahead and extended to the thoracic spine also. Patient admitted to hospitalist. Dr. Klein has already seen the patient and evaluated him. Patient was admitted. However, patient's CTA of the neck came back with some critical results and I went ahead and called Dr. Leyva's nurse practitioner Nichole and she states the patient may need to be transferred. Nichole to speak with Dr. Klein. [] Harris Disclaimer: Harris Disclaimer: This electronic medical record was generated, in whole or in part, using a voice recognition dictation system. COVID-19 Patient Risks: Age 65 or older: No Sign of co-morbidity: Yes Exp to person + for COVID: No Exp to PUI: No Travel from affected area: No Lower respiratory symptoms: No Fever: No Other: Yes (dizziness) PPE Use: Full PPE with N95 mask or PAPR: Yes Departure Departure Impression: Primary Impression: Cervical spine fracture Qualified Codes: S12.401A - Unspecified nondisplaced fracture of fifth cervical vertebra, initial encounter for closed fracture Additional Impressions: Nasal bone fracture Qualified Codes: S02.2XXA - Fracture of nasal bones, initial encounter for closed fracture Laceration Disposition: ADMITTED INPATIENT Admitting Physician: OCTAVIO Condition: STABLE Referrals: CARYL LINO MD (PCP) COMPA WILKINSON ASSOCIATE [employer]ELOPER Jun 03, 2021 15:33
--- NOTE | 2021-06-03 16:33 | RAD ---
CT HEAD AND C-SPINE WO, CT MAXILLOFACIAL WITHOUT CONTRAST History: Reason: syncope / Spl. Instructions: / History: . Pain Comparison: August 15, 2000 and Technique: Noncontrast CT imaging was performed of the head, maxillofacial and cervical spine. Arellano l and sagittal reconstructions were performed. Exposure: One or more of the following individualized dose reduction techniques were utilized for thi s examination: 1. Automated exposure control 2. Adjustment of the mA and/or kV according to patient size 3. Use of iterative reconstruction technique. Findings: Head CT: No intracranial hemorrhage. No mass effect. No hydrocephalus. Mild brain parenchymal volume loss. Moderate foci of decreased attenuation within the hemispheric whi te matter, most often due to chronic microscopic ischemia, overall progressed compared to 2009. Right frontal scalp laceration Maxillofacial CT: Acute comminuted bilateral nasal bone fracture with mild displacement. There is adj acent soft tissue swelling. Orbits are unremarkable. Paranasal sinuses and mastoid air cells are clear. No acute calvarial fractu re. TMJ arthropathy greatest on the left. Left maxillary carious dentition with periodontal disease. Cervical spine CT: Acute C5 spinous process fracture involving the right lamina. Acute right C5 transverse process fract ure (series 17 image 34) involving the transverse foramen. Fragments adjacent to the anterior inferio r C5 vertebral body, may relate to degenerative changes or small fracture fragments from the anterior inferior corner. Grade 1 anterolisthesis C4 on C5. Mild retrolisthesis C5 on C6. Slight grade 1 anterolisthesis C7 on T1. Multilevel degenerative disc changes most prominent C4-C5, C5-C6 or C6-C7. Multilevel bony facet fusi on C3-C4 and C4-C5. No high-grade canal narrowing. Multilevel neuroforaminal narrowing. Soft tissues are unremarkable. Impression: Head CT: 1. No acute intracranial abnormality. 2. Right frontal scalp laceration. Maxillofacial CT: 1. Acute comminuted bilateral nasal bone fracture with adjacent soft tissue swelling. Cervical spine CT: 1. Acute C5 spinous process and right lamina fracture as well as right transverse process fracture i nvolving the transverse foramen CT angiogram can further evaluate for vertebral artery injury as clin ically warranted. 2. Ossifications adjacent to the C5 anterior inferior corner, may relate to small fracture fragments or degenerative changes. Electronically signed by: Jonathon Mckinley DO (06/03/2021 4:30 PM) [facility]
--- NOTE | 2021-06-03 16:54 | RAD ---
XR CHEST 1V Clinical History: Reason: syncope / Spl. Instructions: / History: Technique: AP view of the chest was obtained at 06/03/2021 4:40 PM. Comparison: December 01, 2020. Findings: The cardiomediastinal silhouette is normal. The pulmonary vasculature is normal. The lungs and pleura l margins are clear. Impression: No evidence of an acute cardiopulmonary process. Electronically signed by: Roger Salas III, MD (06/03/2021 4:51 PM) [id number]
--- NOTE | 2021-06-03 17:27 | EKG ---
[facility] [address] [place] [address] Test Date: 2021-06-03 Test Time: 15:11:34 Pat Name: TOLU WATT Department: Room: Gender: M Prescription Benefit Specialist: : 1960 Requested By: COMPA WILKINSON Order Number: [id number] Reading MD: Measurements Intervals Max Rate: 100 P: 30 UT: 154 QRS: -2 QRSD: 78 T: 8 QT: 352 QTc: 457 Interpretive Statements SINUS RHYTHM LEFTWARD AXIS NO SPECIFIC ECG ABNORMALITIES RI6.01 No previous ECG available for comparison
[2021-06-03] MEDS ORDERED: fentaNYL PF VIAL 100 MCG/2 ML VIAL IVP ONE (17:45)
[2021-06-03 18:12] LABS: CREATINE KINASE 339 U/L (39-308); MYOGLOBIN 475 ng/mL (16-96)
[2021-06-03] MEDS ORDERED: MORPHINE SULFATE 2 MG/ML INJ. IVP PRN ×2 (18:15→18:45)
[2021-06-03] MEDS ORDERED: PIPERACILLIN/TAZOBACTAM 3.375 GM in IV NORMAL SALINE 50ML 50 ML IV ONE (18:30)
[2021-06-03] MEDS ORDERED: IOHEXOL 350 MG/ML 100 ML VIAL. IV ONE (18:30)
[2021-06-03] MEDS ORDERED: CONTRAST GIVEN. MC PRN (18:30)
[2021-06-03] MEDS ORDERED: DOCUSATE SODIUM 100 MG CAPSULE. PO PRN (18:45)
[2021-06-03] MEDS ORDERED: IV NORMAL SALINE 1000ML BAG 1,000 ML IV SCH (18:45)
[2021-06-03] MEDS ORDERED: MORPHINE SULFATE 2 MG/ML INJ. IV PRN (18:45)
[2021-06-03] MEDS ORDERED: HYDROcodone/APAP 5/325MG 1 TAB TABLET PO PRN (18:45)
[2021-06-03] MEDS ORDERED: ACETAMINOPHEN 325 MG TABLET. PO PRN (18:45)
[2021-06-03] MEDS ORDERED: PROCHLORPERAZINE 10 MG/2 ML VIAL. IV PRN (18:45)
[2021-06-03] MEDS ORDERED: ONDANSETRON PF 4 MG/2 ML VIAL. IVP PRN (18:45)
[2021-06-03] MEDS ORDERED: SENNOSIDES 8.6 MG TABLET PO PRN (18:45)
[2021-06-03] MEDS ORDERED: DEXTROSE 50% 25 GM / 50ML DISP.SYRIN. IV PRN (18:45)
--- NOTE | 2021-06-03 19:00 | RAD ---
CTA NECK History:Reason: CERVICAL FRACTURE FROM FALL / Spl. Instructions: [id number] [phone] / History: Technique: After bolus of intravenous contrast, volumetric CT data acquisition was acquired of the [facility]. Multiplanar reconstruction images to include MIP and 3-D reconstruction images are submitted. Exposure: One or more of the following individualized dose reduction techniques were utilized for thi s examination: 1. Automated exposure control 2. Adjustment of the mA and/or kV according to patient size 3. Use of iterative reconstruction technique. Comparison: None Any determination of stenosis is based on NASCET criteria. Findings: Aortic arch: Conventional arch anatomy. Common carotid arteries: No stenosis, occlusion or dissection. Internal carotid arteries: No stenosis, occlusion or dissection. External carotid arteries: Patent Vertebral arteries: Focal irregularity and moderate narrowing of the right vertebral artery at the C5 transverse process fracture with focal dissection. No arterial occlusion. Mild narrowing of the left vertebral artery at the left C5 transverse process. Left internal carotid artery supraclinoid the inferior projecting 2 mm aneurysm or infundibulum (seri es 3 image 263 and series 6 image 112). Imaged lung apices are unremarkable. Soft tissues appear normal. Bones: Acute right C5 spinous process fracture involving the right lamina. Acute right transverse pro cess fracture. Acute C5 anterior inferior corner fracture. Multilevel cervical spondylosis. TMJ arthr opathy. Carious dentition with periodontal disease. Impression: 1. Focal right vertebral artery intimal injury with focal dissection at the level of the right C5 tr ansverse process fracture. 2. C5 anterior inferior corner fracture as well as spinous process and right lamina fracture. 3. 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 Electronically signed by: Jonathon Mckinley DO (06/03/2021 6:58 PM) [facility]
--- NOTE | 2021-06-03 19:09 | RAD ---
CT THORACIC SPINE WITH IV CONTRAST History:Reason: CERVICAL FRACTURE FROM FALL / Spl. Instructions: / History: Technique: CT was performed of the thoracic spine with contrast. Multiplanar reconstructions were per formed. Exposure: One or more of the following individualized dose reduction techniques were utilized for thi s examination: 1. Automated exposure control 2. Adjustment of the mA and/or kV according to patient size 3. Use of iterative reconstruction technique. Comparison: NoneNonendings: Thoracic spine: Normal vertebral body height and alignment. No fracture. Mild degenerative disc changes. No high-grade canal narrowing. T1-T2 facet arthropathy with moderate neuroforaminal narrowing. Mild T2-T3 neuroforaminal narrowing. Cholelithiasis. Impression: 1. No acute fracture or subluxation of the thoracic spine. 2. Cholelithiasis. Electronically signed by: Jonathon Mckinley DO (06/03/2021 7:06 PM) [facility]
--- NOTE | 2021-06-03 19:16 | PDOC1 ---
History and Physical Date of Service: DOS: DATE: 06/03/21 TIME: 19:09 Chief Complaint: Chief Complain: Passed out History of Present Illness: HPI: Patient is a 61-year-old male with past medical history of atrial fibrillation, CHF, DVT on Xarelto, dyslipidemia, hypertension who comes in because of passing out. Patient states that he was at home when he took a shower and he went to go pick something kitchen he went back to the shower and all he could remember was he was found on the floor the next thing he remembered was that he crawled over to his bed because he saw blood everywhere. He tried to call the ambulance. He eventually was picked up and he was did suffer a forehead laceration that was repaired in the ED. Patient states that he is also on Xarelto for clots and also has a history of atrial fibrillation. Patient also endorses bloody stool that started yesterday and actually was getting worse. He said that he had a colonoscopy and endoscopy in the past but is unable to remember what were the findings from that. Currently denies any fevers, shortness of breath, chest pain, numbness or tingling, palpitations, weakness, abdominal pain, dysuria or diarrhea. Past Medical/Surgical History: PMH/PSH: Past Medical History: A-Fib, CHF, DVT, High Cholesterol, Hypertension, Past Surgical History: COLON, hernia Allergies: Allergies: Coded Allergies: No Known Drug Allergies (Unverified , 06/03/21) Family History: Family History: Reviewed with no relevant findings Social History: Social History: Smoking Status: Current Some Day Smoker Alcohol Use: None Drug Use: None Current Medications: Current Medications Current Medications Sodium Chloride 1,000 ml @ 1,000 mls/hr 1X ONCE IV Last administered on 06/03/21at 15:00; Start 06/03/21 at 15:00; Stop 06/03/21 at 15:59; Status DC Lidocaine HCl (Lidocaine 1% 20ml Vial) 20 ml 1X ONCE INJ Last administered on 06/03/21at 15:00; Start 06/03/21 at 15:00; Stop 06/03/21 at 15:01; Status DC Diphtheria/ Tetanus/Acell Pertussis (ADACEL TDap SYRINGE) 0.5 ml ONCE ONCE VAX IM Last administered on 06/03/21at 15:00; Start 06/03/21 at 15:00; Stop 06/03/21 at 15:01; Status DC Sodium Chloride 1,000 ml @ 1,000 mls/hr 1X ONCE IV Last administered on 06/03/21at 15:00; Start 06/03/21 at 15:00; Stop 06/03/21 at 15:59; Status DC Magnesium Sulfate 50 ml @ 25 mls/hr 1X ONCE IV Last administered on 06/03/21at 15:30; Start 06/03/21 at 15:30; Stop 06/03/21 at 17:29; Status DC Fentanyl Citrate (Fentanyl 2ml Vial) 50 mcg 1X ONCE IVP Last administered on 06/03/21at 17:45; Start 06/03/21 at 17:45; Stop 06/03/21 at 17:46; Status DC Piperacillin Sod/ Tazobactam Sod 3.375 gm/Sodium Chloride 50 ml @ 100 mls/hr 1X ONCE IV Last administered on 06/03/21at 18:30; Start 06/03/21 at 18:30; Stop 06/03/21 at 18:59; Status DC Lidocaine HCl (Lidocaine 1% 20ml Vial) 20 ml 1X ONCE INJ Last administered on 06/03/21at 18:00; Start 06/03/21 at 18:00; Stop 06/03/21 at 18:01; Status DC Iohexol (Omnipaque 350 Mg/ml) 70 ml 1X ONCE IV Last administered on 06/03/21at 18:30; Start 06/03/21 at 18:30; Stop 06/03/21 at 18:31; Status DC Morphine Sulfate (Morphine Sulfate) 2 mg PRN Q2HR PRN IVP PAIN; Start 06/03/21 at 18:15; Stop 06/04/21 at 18:14 Info (CONTRAST GIVEN -- Rx MONITORING) 1 each PRN DAILY PRN MC SEE COMMENTS; Start 06/03/21 at 18:30; Stop 06/05/21 at 18:29 Sennosides (Senna) 17.2 mg PRN BID PRN PO CONSTIPATION; Start 06/03/21 at 18:45 Docusate Sodium (Colace) 100 mg PRN DAILY PRN PO HARD STOOLS; Start 06/03/21 at 18:45 Ondansetron HCl (Zofran) 4 mg PRN Q6HRS PRN IVP NAUSEA/VOMITING; Start 06/03/21 at 18:45 Dextrose (Dextrose 50%-Water Syringe) 12.5 gm PRN Q15MIN PRN IV SEE COMMENTS; Start 06/03/21 at 18:45 Sodium Chloride 1,000 ml @ 100 mls/hr Q10H IV ; Start 06/03/21 at 18:45 Acetaminophen (Tylenol) 650 mg PRN Q4HRS PRN PO TEMP OVER 100.4F OR MILD PAIN; Start 06/03/21 at 18:45 Acetaminophen/ Hydrocodone Bitart (Lortab 5/325) 1 tab PRN Q4HRS PRN PO MILD PAIN 1-3; Start 06/03/21 at 18:45 Morphine Sulfate (Morphine Sulfate) 1 mg PRN Q1HR PRN IV PAIN; Start 06/03/21 at 18:45 Morphine Sulfate (Morphine Sulfate) 2 mg PRN Q2HR PRN IVP SEVERE PAIN 7-10; Start 06/03/21 at 18:45; Stop 06/04/21 at 18:44 Prochlorperazine Edisylate (Compazine) 10 mg PRN Q6HRS PRN IV NAUSEA/VOMITING; Start 06/03/21 at 18:45 Active Scripts Active Chlordiazepoxide Hcl 25 Mg Capsule 25 Mg PO PRN PRN 4 Days 50mg every 6 hours x 1 day. 25mg every 6 hours x 1 day. 25mg BID x 1 day. 25mg QHS x 1 day. Cyclobenzaprine Hcl 10 Mg Tablet 1 Tab PO TID Medrol (Methylprednisolone) 4 Mg Tab.ds.pk 1 Pkg PO UD Waldron 5-325 Tablet (Acetaminophen/Hydrocodone Bitart) 1 Each Tablet 1 Tab PO Q6HRS Flagyl (Metronidazole) 500 Mg Tablet 500 Mg PO Q8HRS 10 Days Sulfamethoxazole-Tmp Ds Tablet (Sulfamethoxazole/Trimethoprim) 1 Each Tablet 1 Tab PO BID 10 Days Reported Metoprolol Succinate ( Xl ) (Metoprolol Succinate) 25 Mg Tab.er.24h 25 Mg PO DAILY Zolpidem Tartrate 10 Mg Tablet 10 Mg PO HS 1 Days Ferrous Sulfate 325 Mg Tablet 1 Tab PO TID Pantoprazole Sodium (Pantoprazole Sodium) 40 Mg Tablet.dr 1 Tab PO DAILY Amlodipine Besylate 5 Mg Tablet 5 Mg PO DAILY Losartan-Hctz 100-25 Mg Tab (Losartan/Hydrochlorothiazide) 1 Each Tablet 1 Tab PO DAILY Xarelto (Rivaroxaban) 10 Mg Tablet Unknown Dose PO DAILY Allopurinol 300 Mg Tablet 300 Mg PO DAILY ROS: Review of Systems Review of System REVIEW OF SYSTEMS: GENERAL: Positive for fatigue SKIN: No bruising, hair changes or rashes. EYES: No blurred, double or loss of vision. NOSE AND THROAT: No history of nosebleeds, hoarseness or sore throat. HEART: No history of palpitations, chest pain or shortness of breath on exertion. LUNGS: Denies cough, hemoptysis, wheezing or shortness of breath. GASTROINTESTINAL: Denies changes in appetite, nausea, vomiting, diarrhea or constipation. GENITOURINARY: No history of frequency, urgency, hesitancy or nocturia. NEUROLOGIC: Positive for headache PSYCHIATRIC: No history of panic, anxiety or depression. ENDOCRINE: No history of heat or cold intolerance, polyuria or polydipsia. EXTREMITIES: Denies joint pain, pain on walking or stiffness. Physical Exam: Vital Signs: Vital Signs Date Time Temp Pulse Resp B/P (MAP) Pulse Ox O2 Delivery O2 Flow Rate FiO2 06/03/21 17:45 Room Air 06/03/21 16:20 99 16 95/63 (74) 97 06/03/21 14:04 98.5 98.5 Physcial Exam: General: Well developed, well nourished, no acute distress, well appearing. Patient in c-collar HEENT: Forehead laceration status post suture repair. Neck: Supple, no nuchal rigidity, no JVD, trachea midline, no tenderness Cardiac: RRR, no murmurs, no gallops, no rubs Chest/Lungs: CTAB, no wheeze, no rhonchi, no crackles Abdomen: soft, non-distended, no guarding, no peritoneal signs, non-tender Back: No tenderness Extremities: no edema, pulses intact, non-tender,capillary refill <3 sec bilateral upper and lower extremities, Neuro: Alert and oriented x 4, no focal deficits, normal speech Labs: Labs: Laboratory Tests Test 06/03/21 14:12 06/03/21 16:38 06/03/21 18:00 White Blood Count 17.9 x10^3/uL (4.0-11.0) Red Blood Count 2.37 x10^6/uL (4.30-5.70) Hemoglobin 7.1 g/dL (13.0-17.5) Hematocrit 21.5 % (39.0-53.0) Mean Corpuscular Volume 91 fL (79-100) Mean Corpuscular Hemoglobin 30 pg (25-35) Mean Corpuscular Hemoglobin Concent 33 g/dL (31-37) Red Cell Distribution Width 16.4 % (11.5-14.5) Platelet Count 281 x10^3/uL (140-400) Neutrophils (%) (Auto) 87 % (31-73) Lymphocytes (%) (Auto) 5 % (24-48) Monocytes (%) (Auto) 7 % (0-9) Eosinophils (%) (Auto) 0 % (0-3) Basophils (%) (Auto) 0 % (0-3) Neutrophils # (Auto) 15.7 x10^3/uL (1.8-7.7) Lymphocytes # (Auto) 0.9 x10^3/uL (1.0-4.8) Monocytes # (Auto) 1.3 x10^3/uL (0.0-1.1) Eosinophils # (Auto) 0.0 x10^3/uL (0.0-0.7) Basophils # (Auto) 0.0 x10^3/uL (0.0-0.2) Segmented Neutrophils % 84 % (35-66) Band Neutrophils % 1 % (0-9) Lymphocytes % 11 % (24-48) Monocytes % 4 % (0-10) Platelet Estimate Adequate (ADEQUATE) Polychromasia Slight Sodium Level 142 mmol/L (136-145) Potassium Level 4.1 mmol/L (3.5-5.1) Chloride Level 107 mmol/L (98-107) Carbon Dioxide Level 25 mmol/L (21-32) Anion Gap 10 (6-14) Blood Urea Nitrogen 22 mg/dL (8-26) Creatinine 1.8 mg/dL (0.7-1.3) Estimated GFR (Cockcroft-Gault) 46.8 BUN/Creatinine Ratio 12 (6-20) Glucose Level 122 mg/dL (70-99) Calcium Level 8.2 mg/dL (8.5-10.1) Phosphorus Level 3.6 mg/dL (2.6-4.7) Magnesium Level 1.6 mg/dL (1.8-2.4) Total Bilirubin 0.2 mg/dL (0.2-1.0) Aspartate Amino Transf (AST/SGOT) 24 U/L (15-37) Alanine Aminotransferase (ALT/SGPT) 20 U/L (16-63) Alkaline Phosphatase 64 U/L (46-116) Creatine Kinase 339 U/L (39-308) Myoglobin 475 ng/mL (16-96) Troponin I Quantitative < 0.017 ng/mL (0.000-0.055) [id number] Natriuretic Peptide 304 pg/mL (0-124) Total Protein 6.6 g/dL (6.4-8.2) Albumin 2.7 g/dL (3.4-5.0) Albumin/Globulin Ratio 0.7 (1.0-1.7) Ethyl Alcohol Level < 10 mg/dL (0-10) Lactic Acid Level 2.8 mmol/L (0.4-2.0) SARS-CoV-2 Antigen (Rapid) Negative (NEGATIVE) Laboratory Tests Test 06/03/21 14:12 06/03/21 16:38 06/03/21 18:00 White Blood Count 17.9 x10^3/uL (4.0-11.0) Red Blood Count 2.37 x10^6/uL (4.30-5.70) Hemoglobin 7.1 g/dL (13.0-17.5) Hematocrit 21.5 % (39.0-53.0) Mean Corpuscular Volume 91 fL (79-100) Mean Corpuscular Hemoglobin 30 pg (25-35) Mean Corpuscular Hemoglobin Concent 33 g/dL (31-37) Red Cell Distribution Width 16.4 % (11.5-14.5) Platelet Count 281 x10^3/uL (140-400) Neutrophils (%) (Auto) 87 % (31-73) Lymphocytes (%) (Auto) 5 % (24-48) Monocytes (%) (Auto) 7 % (0-9) Eosinophils (%) (Auto) 0 % (0-3) Basophils (%) (Auto) 0 % (0-3) Neutrophils # (Auto) 15.7 x10^3/uL (1.8-7.7) Lymphocytes # (Auto) 0.9 x10^3/uL (1.0-4.8) Monocytes # (Auto) 1.3 x10^3/uL (0.0-1.1) Eosinophils # (Auto) 0.0 x10^3/uL (0.0-0.7) Basophils # (Auto) 0.0 x10^3/uL (0.0-0.2) Segmented Neutrophils % 84 % (35-66) Band Neutrophils % 1 % (0-9) Lymphocytes % 11 % (24-48) Monocytes % 4 % (0-10) Platelet Estimate Adequate (ADEQUATE) Polychromasia Slight Sodium Level 142 mmol/L (136-145) Potassium Level 4.1 mmol/L (3.5-5.1) Chloride Level 107 mmol/L (98-107) Carbon Dioxide Level 25 mmol/L (21-32) Anion Gap 10 (6-14) Blood Urea Nitrogen 22 mg/dL (8-26) Creatinine 1.8 mg/dL (0.7-1.3) Estimated GFR (Cockcroft-Gault) 46.8 BUN/Creatinine Ratio 12 (6-20) Glucose Level 122 mg/dL (70-99) Calcium Level 8.2 mg/dL (8.5-10.1) Phosphorus Level 3.6 mg/dL (2.6-4.7) Magnesium Level 1.6 mg/dL (1.8-2.4) Total Bilirubin 0.2 mg/dL (0.2-1.0) Aspartate Amino Transf (AST/SGOT) 24 U/L (15-37) Alanine Aminotransferase (ALT/SGPT) 20 U/L (16-63) Alkaline Phosphatase 64 U/L (46-116) Creatine Kinase 339 U/L (39-308) Myoglobin 475 ng/mL (16-96) Troponin I Quantitative < 0.017 ng/mL (0.000-0.055) IX-[id number]-Type Natriuretic Peptide 304 pg/mL (0-124) Total Protein 6.6 g/dL (6.4-8.2) Albumin 2.7 g/dL (3.4-5.0) Albumin/Globulin Ratio 0.7 (1.0-1.7) Ethyl Alcohol Level < 10 mg/dL (0-10) Lactic Acid Level 2.8 mmol/L (0.4-2.0) SARS-CoV-2 Antigen (Rapid) Negative (NEGATIVE) Images: Images CXR Impression: 1. No acute cardiopulmonary process. PROCEDURE: CT HEAD AND CERVICAL SPINE WO CT HEAD AND C-SPINE WO, CT MAXILLOFACIAL WITHOUT CONTRAST History: Reason: syncope / Spl. Instructions: / History: . Pain Comparison: August 15, 2000 and Technique: Noncontrast CT imaging was performed of the head, maxillofacial and cervical spine. Coronal and sagittal reconstructions were performed. Exposure: One or more of the following individualized dose reduction techniques were utilized for this examination: 1. Automated exposure control 2. Adjustment of the mA and/or kV according to patient size 3. Use of iterative reconstruction technique. Findings: Head CT: No intracranial hemorrhage. No mass effect. No hydrocephalus. Mild brain parenchymal volume loss. Moderate foci of decreased attenuation within the hemispheric white matter, most often due to chronic microscopic ischemia, overall progressed compared to 2009. Right frontal scalp laceration Maxillofacial CT: Acute comminuted bilateral nasal bone fracture with mild displacement. There is adjacent soft tissue swelling. Orbits are unremarkable. Paranasal sinuses and mastoid air cells are clear. No acute calvarial fracture. TMJ arthropathy greatest on the left. Left maxillary carious dentition with periodontal disease. Cervical spine CT: Acute C5 spinous process fracture involving the right lamina. Acute right C5 tr ansverse process fracture (series 17 image 34) involving the transverse foramen. Fragments adjacent to the anterior inferior C5 vertebral body, may relate to degenerative changes or small fracture fragments from the anterior inferior corner. Grade 1 anterolisthesis C4 on C5. Mild retrolisthesis C5 on C6. Slight grade 1 anterolisthesis C7 on T1. Multilevel degenerative disc changes most prominent C4-C5, C5-C6 or C6-C7. Multilevel bony facet fusion C3-C4 and C4-C5. No high-grade canal narrowing. Multilevel neuroforaminal narrowing. Soft tissues are unremarkable. Impression: Head CT: 1. No acute intracranial abnormality. 2. Right frontal scalp laceration. Maxillofacial CT: 1. Acute comminuted bilateral nasal bone fracture with adjacent soft tissue swelling. Cervical spine CT: 1. Acute C5 spinous process and right lamina fracture as well as right transverse process fracture involving the transverse foramen CT angiogram can further evaluate for vertebral artery injury as clinically warranted. 2. Ossifications adjacent to the C5 anterior inferior corner, may relate to small fracture fragments or degenerative changes. Assessment/Plan Assessment/Plan Syncope due to vasovagal etiology, orthostatic hypotension and volume depletion Anemia secondary to acute blood loss Acute gastrointestinal bleed Lactic acidemia SAHIL due to vasomotor nephropathy History of atrial fibrillation History of CHF, last TTE in 2017 showed LVEF of 55% and grade 1 diastolic dysfunction History of DVT Admit to medicine for further work-up Continue telemetry monitoring Ending GI consult Trend hemoglobin Continue IV fluids Fall precautions Orthostatic vital signs Hold all centrally acting medications Pending medication reconciliation Contraindicated, hold Xarelto for DVT prophylaxis Continue Protonix GI prophylaxis ADA diet Full code Discussed with RN and SW Disposition inpatient management as above Surrogate decision maker is the Luis Felipe Pearson Justifications for Admission Other Justification PATTI BANEGAS MD Jun 03, 2021 19:16
[2021-06-03 21:28] VITALS: BP 116/77
[2021-06-04] MEDS ORDERED: PANTOPRAZOLE 40 MG TABLET.DR. PO SCH (07:30)
== END 2021-06-03 21:29 | disposition short-term general hospital (02) ==
LOC: ER 13:53 → UNDOADMIN 18:04 → 5 NORTH 18:04 → ER 21:29
DX: S12.401A Unspecified nondisplaced fracture of fifth cervical vertebra, initial encounter for closed fracture (principal); Z20.822 Contact with and (suspected) exposure to COVID-19; S02.2XXA Fracture of nasal bones, initial encounter for closed fracture; S01.81XA Laceration without foreign body of other part of head, initial encounter; M54.6 Pain in thoracic spine; M54.5 Low back pain; R51.9 Headache, unspecified; M54.2 Cervicalgia; I48.91 Unspecified atrial fibrillation; I11.0 Hypertensive heart disease with heart failure; I50.9 Heart failure, unspecified; E78.00 Pure hypercholesterolemia, unspecified; F17.200 Nicotine dependence, unspecified, uncomplicated; W45.8XXA Other foreign body or object entering through skin, initial encounter; Y93.89 Activity, other specified; Y92.89 Other specified places as the place of occurrence of the external cause; Y99.8 Other external cause status
CPT/HCPCS: 12013; 36415; 40650; 70450; 70486; 70498; 71045; 72125; 72129; 80053; 82550; 83605; 83735; 83874; 83880; 84100; 84484; 85007; 85025; 86850; 86900; 86901; 87040; 87426; 90471; 90715; 93005; 96365; 96366; 96367; 96375; 99285; G0480; J2543; J3010; J3475; J3490; J7030; Q9967; U0003; U0005; 96368